=== PATIENT | male | born 1985 | race Caucasian/White ===

== ENCOUNTER 2021-03-07 16:04 | Emergency (ER) | payer SELFPAY ==
[2021-03-07 16:05] VITALS: BP 161/102; PULSE 66; RESP 18; TEMP 36.9; O2SAT 100; BMI 28.1
--- NOTE | 2021-03-07 16:24 | EDS_ITS ---
HPI History of Present Illness Chief Complaint: Back Informant: patient Onset/Context/Timing Onset: Weeks Context: Gradual Onset Injury: bending Timing: Continuous Quality: Sharp and Aching Current Severity: Mild Maximum Severity: Moderate Worsened by: improves with Movement, Bending and Lifting; worse with Night time pain Relieved by: Remaining Still Associated Symptoms Associated Symptoms: Radiation to Right Leg and Radiation to Left Leg; Negative for Numbness, Tingling, Fever, Abdominal Pain, Dysuria, Unable to Ambulate, Unable to Transfer, Urinary Retention, Urinary Incontinence, Constipation and Fecal Incontinence Narrative Narrative: 35-year-old male no sniffing past medical or surgical history. Works in a factory type setting. He has had back pain for last 2 weeks. Times has muscle aches. On Monday he bent over and he felt a pop. Since that time he had tingling in his legs. Pain is worse with bending or straightening up. He denies any fever. There is been no trauma. He denies any bowel or bladder incontinence or retention. He is never had back surgery. He denies any fever. He is on no blood thinners. Prior similar symptoms: No Recent Illness/Hospitalization: No PFSH PFSH Medical History no medical history no medical history Home Medications NK 03/07/21 [History Last Taken Unknown] Allergy/AdvReac Type Severity Reaction Status Date / Time bee venom protein (honey bee) Allergy Anaphylaxis Verified 03/07/21 16:05 codeine Allergy Hives Verified 03/07/21 16:05 Surgical History no surgical history Social History Smoking Status: Current every day smoker tobacco type: cigarettes ROS ROS ED ROS Narrative Back pain. Review of Systems ROS Unobtainable: Denies due to encephalopathy Constitutional Constitutional ED: Denies chills or fever(s) Eyes Eyes: Denies change in vision ENT ENT ED: Denies ear pain or sore throat Respiratory/Chest Respiratory/Chest: Denies dyspnea or sputum Gastrointestinal Gastrointestinal: Denies abdominal pain, constipation, diarrhea, nausea or vomiting Genitourinary Genitourinary ED: Denies dysuria or hematuria Musculoskeletal Musculoskeletal: Reports back pain; Denies arthralgias or myalgias Integumentary Denies abscess or rash Neurologic Neurologic: Denies headache(s) Psychiatric Psychiatric: Denies depression Endocrine Endocrinology: Denies polyuria Hematologic/Lymphatic Hematologic/Lymphatic: Denies easy bruising Allergic/Immunologic Allergic/Immunologic ED: Denies urticaria EXAM Physical Exam Narrative Exam Narrative: 35-year-old male no acute distress. Vital signs are stable and afebrile. H EENT exam unremarkable. Lungs are clear. Heart regular rate and rhythm no murmur. Abdomen soft nontender. Moving all 4 extremities. Neurovascularly intact. No cauda equina. No saddle anesthesia. Normal medial thigh sensation. Normal dorsi plantarflexion of the lower extremities. Positive straight leg raise with either leg passively to 15 degrees. Back mild tenderness to the lower lumbar and paralumbar soft tissues. No redness or warmth or discoloration no signs of trauma. Neurologic exam normal. Again no motor or sensory deficits. No cauda equina. Const Vital Signs: 03/07/21 16:05 Temperature 98.4 F Temperature Source Temporal Pulse Rate 66 Respiratory Rate 18 Blood Pressure 161/102 H Blood Pressure Mean 121 Pulse Ox 100 Positive well nourished and well developed; Negative for obese, cachectic, contractures or unkempt General Appearance ED: well developed and NAD; Negative for unkempt, cachectic, contractures or pallor Nutritional Appearance: Negative for cachectic or obese HEENT Reports moist mucous membranes Negative for trauma or tenderness Eyes PERRL and EOMs intact bilaterally Neck no lymphadenopathy, supple and no JVD General: Negative for tenderness Resp normal respiratory effort and clear to auscultation bilaterally Effort and Inspection: Negative for pain with movement Cardio regular rate, regular rhythm, S1 normal heart sound, S2 normal heart sound and no murmurs GI normal to inspection, nondistended, normoactive bowel sounds, soft to palpation, non-tender, non-distended and no masses Inspection: Negative for abdominal distention Palpation: Negative for tender, guarding or rebound tenderness present Back/Spine normal to inspection; Negative for no thoracic nor lumbar tenderness General Back: Negative for CVA tenderness or scar(s) Cervical Spine: Negative for cervical spine tenderness and Negative for parac ervical muscle tenderness Thoracic Spine / Upper Back: paraspinal muscle tenderness Lumbar Spine / Lower Back: ROM limited, straight leg raise positive right and straight leg raise positive - left; Negative for straight leg raise negative bilaterally Extremity normal to inspection and no clubbing, cyanosis or edema General Extremety ED: Negative for edema or tenderness General Extremity: Negative for edema Neuro oriented x3 and no sensory deficits noted Neuro Narrative: Normal motor strength and sensation both lower extremities. Straight leg raise bilaterally passively at 15 degrees. Sensorium / Orientation: alert; Negative for confused, lethargic or stuporous Motor Exam: strength 5/5 throughout; Negative for strength abnormal Psych mental status grossly normal Appearance: Negative for unkempt Skin no rashes or lesions noted and no wounds General Skin Exam: Negative for jaundice or pallor MDM MDM MDM Narrative Medical decision making narrative: Back pain with radiculopathy. No cauda equina. Normal motor strength. No loss of sensation. Discussed with patient this may be an inflamed a ruptured disc. He does not need an emergent MRI at this time. He is already taken ibuprofen. He will be placed on light duty at work. No bending. Follow-up with local physician and/or orthopedic surgeon to determine if he needs an MRI. Discharge Plan Triage Chief Complaint: Back ED Provider: Dimas Taylor Dx/Rx/DC Orders Clinical Impression: Back pain, Bulging lumbar disc Instructions: Fx Back Prescriptions: No Action NK RF: 0 Primary Care Provider: Care Physician,No Primary Referrals: Charles Fitch MD [STAFF PHYSICIAN] - As soon as possible Costa Soliz MD [STAFF PHYSICIAN] - As soon as possible Care Physician,No Primary [Primary Care Provider] - Activity Restrictions/Additional Instructions: Continue the ibuprofen 600 mg 3 times a day for pain and swelling. You may also use Tylenol. Hot shower warm bath to relax the muscles in your back. Also massage. Cool compresses to decrease inflammation. Call and follow-up with either the orthopedic physician Dr. Lorenzo Soliz or the primary care physician Dr. Charles Fitch they can reevaluate and determine if you need an outpatient MRI of your lumbar spine. Return if severe and worsening pain, fever or bowel or bladder incontinence Light duty at work. Off work tomorrow. Disposition Disposition: Home, Self Care
== END 2021-03-07 16:44 | disposition home or self-care (01) ==
LOC: ED 16:40
PROVIDERS: Emergency Provider Emergency Medicine
DX: M51.16 Intervertebral disc disorders with radiculopathy, lumbar region (principal); M54.5 Low back pain; F17.210 Nicotine dependence, cigarettes, uncomplicated
CPT/HCPCS: 99282

== ENCOUNTER 2024-04-23 09:58 | Emergency (ER) | payer OTHER, SELFPAY ==
[2024-04-23 09:58] VITALS: BP 143/100; PULSE 83; RESP 16; TEMP 36.8; O2SAT 98; BMI 27.3
[2024-04-23 10:54] LABS: Absolute Lymphocyte Count 1.78 X10^3/uL (0.83-4.51); Absolute Neutrophil Count 6.4 X10^3/uL (2.0-7.7); Basophil# 0.06 X10^3/uL; Basophil% 0.7 % (0-1); Eosinophil# 0.03 X10^3/uL; Eosinophils% 0.3 % (0-5); Hematocrit 44.2 % (40-54); Hemoglobin 15.2 g/dL (13.0-16.5); Lymphocyte # 1.78 X10^3/ul (0.83-4.51); Lymphocyte % 19.8 % (19-41); Mean Corp Hgb Conc 34.4 g/dL (32-36); Mean Corpuscular Hgb 30.2 pg (27.0-32.0); Mean Corpuscular Volume 87.7 fL (80-94); Mean Platelet Vol. 10.3 fl (6.2-12.0); Monocyte# 0.73 X10^3/uL; Monocyte% 8.1 % (0-10); NRBC Flagged by Analyzer 0 % (0-5); Neutrophil # 6.35 X10^3/uL (2.7-7.7); Neutrophil % 70.9 % (47-70); Platelet Count 314 K/mm3 (150-450); RBC Distribution Width CV 12.4 % (11.6-14.6); RBC Distribution Width SD 39.8 fl (35.1-43.9); Red Blood Count 5.04 M/mm3 (4.6-6.2)
[2024-04-23 11:05] LABS: International Normalized Ratio 1.1; Partial Thromboplast Time 24.5 Seconds (24.1-36.2)
[2024-04-23] MEDS: 0.9% Normal Saline (1000mL) 1,000 ML 1000 ML IV (11:05)
[2024-04-23 11:14] LABS: Ammonia < 10.0 umol/L (11-32); Magnesium 1.9 mg/dL (1.6-2.6)
[2024-04-23 11:15] LABS: AST(SGOT) 22 U/L (15-37); Alanine Aminotransfer ALT/SGPT 49 U/L (16-61); Albumin, Serum 4.7 g/dL (3.2-5.0); Alkaline Phosphatase 54 U/L (45-117); Anion Gap 7 (5-15); BUN 15 mg/dL (7-18); BUN/Creat Ratio 12.8 RATIO (10-20); Bilirubin, Direct 0.17 mg/dL (0.00-0.30); Calcium,Total 9.9 mg/dL (8.5-10.1); Chloride 109 mmol/L (98-107); Creatinine, Serum 1.17 mg/dL (0.70-1.30); EST Glomerular Filtration Rate 74 mL/min (>60); Est Glom Filt Rate - Afr Amer 89 mL/min (>60); Estimated Creatinine Clearance 104.07 ml/min; Globulin 3.6 g/dL (2.2-4.2); Glucose 102 mg/dL (74-106); Lipase 33 U/L (13-75); Potassium 3.6 mmol/L (3.5-5.1); Protein, Total 8.3 g/dL (6.4-8.2); Sodium Level 140 mmol/L (136-145)
[2024-04-23 11:37] VITALS: BP 135/89; BP 136/96; BP 140/97; PULSE 62; PULSE 68; PULSE 92
[2024-04-23 12:45] LABS: Red Blood Cells-Urine 0 SEEN /hpf (0-5); Squamous Epithelial Cells - UA 0 SEEN /hpf (0-5)
[2024-04-23 12:47] LABS: Color, Urine Yellow (Yellow); Glucose, Dipstick Normal (Normal); Ketone-Dipstick 50 mg/dl (Negative); Leukocyte Esterase-Dipstick 25 /ul (Negative); Nitrite-Dipstick Negative (Negative); Occult Blood-Urine Negative /ul (Negative); Protein-Dipstick 30 mg/dl (Negative); Urine Bilirubin Dipstick Negative (Negative); Urine Clarity Sl. Cloudy (Clear); Urine Urobilinogen 1 mg/dl (Normal)
[2024-04-23 12:53] LABS: Bacteria 1+ /hpf (None Seen); Hyaline Cast 0-5 SEEN /lpf (0-5); Mucous, Urine 4+ /hpf (<or=2+)
[2024-04-23 12:54] LABS: White Blood Cells 0-5 SEEN /hpf (0-5)
[2024-04-23 15:29] LABS: Amphetamine Urine VISTA NEGATIVE (<1000 ng/mL); Barbiturate Urine VISTA NEGATIVE (< 200 ng/mL); Benzodiazepine Urine VISTA NEGATIVE (< 200 ng/mL); Cocaine Urine VISTA NEGATIVE (< 300 ng/mL); Ecstacy Urine VISTA NEGATIVE (< 500 ng/mL); Methadone Urine VISTA NEGATIVE (< 300 ng/mL); PCP Urine VISTA NEGATIVE (< 25 ng/mL); THC Urine VISTA POSITIVE (< 50 ng/mL); Vista UDS pH Range 5
== END 2024-04-23 14:15 | disposition home or self-care (01) ==
PROVIDERS: Emergency Provider Emergency Medicine; Visit Provider Emergency Medicine
DX: E86.0 Dehydration (principal); F10.21 Alcohol dependence, in remission; R41.0 Disorientation, unspecified; R10.84 Generalized abdominal pain; R19.7 Diarrhea, unspecified; M54.50 Low back pain, unspecified; R11.0 Nausea; F17.210 Nicotine dependence, cigarettes, uncomplicated; H61.21 Impacted cerumen, right ear
CPT/HCPCS: 70450; 71045; 80048; 80076; 80307; 81001; 82077; 82140; 83690; 83735; 85025; 85610; 85730; 93005; 96360; 99285; J7030; A4216